=== PATIENT | male | born 1955 | race Caucasian/White ===

== ENCOUNTER 2016-08-09 08:51 | Emergency (ER) | payer MEDICAID ==
[~2016-08-09] VITALS: Ht 190.5 cm; Wt 75.0 kg
[~2016-08-09 08:51] MED LIST: INHALER; NO; NO HOME MEDS; OMEPRAZOLE20 MG PO
[2016-08-09 09:46] LABS: HEMATOCRIT 50.2 % (39.0-50.0); HEMOGLOBIN 17.2 g/dl (14.0-18.0); IMMATURE GRANULOCYTES 0.9 % (0.0-1.0); MEAN CELL VOLUME 92.6 fL CALC (80.0-100.0); MEAN CORPUSCULAR HGB 31.7 pG CALC (26.0-32.0); MEAN CORPUSCULAR HGB CONC 34.3 g/L CALC (32.0-36.0); NEUT# 7.94 thou/uL (1.82-7.42); RED BLOOD COUNT 5.42 mill/uL (4.70-6.10); RED CELL DISTRI WIDTH 12.7 % (11.5-15.5)
[2016-08-09 09:53] LABS: ALKALINE PHOSPHATASE 120 u/l (38-126); AMYLASE 43 u/l (30-110); ANION GAP 14 (6-22 (CALC)); BILIRUBIN, TOTAL 1.2 mg/dL (0.0-1.4); BUN 5 mg/dL (8-23); BUN/CREATININE RATIO 4 (12-20 (CALC)); CALCIUM 9.1 mg/dL (8.4-10.2); CARBON DIOXIDE 31 mmol/l (22-30); CHLORIDE 99 mmol/l (95-108); CREATININE 1.3 mg/dL (0.7-1.3); GFR 56 ML/MIN (>=60 (CALC)); GFR FOR AFR.AMER. > 60 ML/MIN (>=60 (CALC)); GLUCOSE 120 mg/dL (82-115); LIPASE 112 u/l (23-300); POTASSIUM 3.4 mmol/l (3.5-5.1); SGOT/AST 154 u/l (19-48); SGPT/ALT 150 u/l (11-66); SODIUM 141 mmol/l (137-146); TOTAL PROTEIN 7.2 g/dL (6.3-8.2)
[2016-08-09] MEDS ORDERED: TYLENOL # 31 TA1 PO (11:23)
[2016-08-09] MEDS ORDERED: ZOFRAN ODT4 MG PO (11:23)
[2016-08-09] MEDS ORDERED: PREDNISONE10 MG PO (11:23)
[2016-08-09 11:29] VITALS: BP 156/111
== END 2016-08-09 11:30 | disposition home or self-care (01) | DRG 392 ==
LOC: ED 08:51
PROVIDERS: Emergency Medicine
DX: R10.30 Lower abdominal pain, unspecified (principal); K70.0 Alcoholic fatty liver; M54.5 Low back pain; R11.2 Nausea with vomiting, unspecified; R19.7 Diarrhea, unspecified
CPT/HCPCS: Q9967

== ENCOUNTER 2017-06-08 07:55 | Emergency (ER) | payer MEDICAID ==
[~2017-06-08] VITALS: Ht 190.5 cm; Wt 90.0 kg
[~2017-06-08 07:55] MED LIST changes: +PREDNISONE10 MG PO; +TYLENOL # 31 TA1 PO; +ZOFRAN ODT4 MG PO
[2017-06-08 09:05] LABS: IMMATURE GRANULOCYTES 0.4 % (0.0-1.0); MEAN CELL VOLUME 97.8 fL CALC (80.0-100.0); MEAN CORPUSCULAR HGB 32.5 pG CALC (26.0-32.0); MEAN CORPUSCULAR HGB CONC 33.3 g/L CALC (32.0-36.0); NEUT# 6.85 thou/uL (1.82-7.42); RED BLOOD COUNT 4.49 mill/uL (4.70-6.10); RED CELL DISTRI WIDTH 14.3 % (11.5-15.5)
[2017-06-08 09:08] LABS: HEMATOCRIT 43.9 % (39.0-50.0); HEMOGLOBIN 14.6 g/dl (14.0-18.0)
[2017-06-08 09:22] LABS: ALBUMIN 4.2 g/dL (3.2-5.0); ALKALINE PHOSPHATASE 82 u/l (38-126); ANION GAP 16 (6-22 (CALC)); BILIRUBIN, TOTAL 0.7 mg/dL (0.0-1.4); BUN 22 mg/dL (8-23); BUN/CREATININE RATIO 14 (12-20 (CALC)); CARBON DIOXIDE 25 mmol/l (22-30); CHLORIDE 101 mmol/l (95-108); CREATININE 1.6 mg/dL (0.7-1.3); GFR 44 ML/MIN (>=60 (CALC)); GFR FOR AFR.AMER. 53 ML/MIN (>=60 (CALC)); SGOT/AST 59 u/l (19-48); SGPT/ALT 68 u/l (11-66); SODIUM 138 mmol/l (137-146); TOTAL PROTEIN 7.5 g/dL (6.3-8.2)
[2017-06-08 09:29] LABS: POTASSIUM 4.2 mmol/l (3.5-5.1)
[2017-06-08 09:36] LABS: MYOGLOBIN 87 ng/mL (0 - 121)
[2017-06-08] MEDS ORDERED: PREDNISONE50 MG PO (10:07)
[2017-06-08] MEDS ORDERED: ZITHROMAX250 MG PO (10:07)
[2017-06-08 10:11] VITALS: BP 125/97
== END 2017-06-08 10:20 | disposition home or self-care (01) | DRG 192 ==
LOC: ED 07:55
PROVIDERS: Emergency Medicine
DX: J44.1 Chronic obstructive pulmonary disease with (acute) exacerbation (principal); R05 Cough; R06.02 Shortness of breath; R06.2 Wheezing